=== PATIENT | male | born 1960 | race Caucasian/White ===

== ENCOUNTER 2016-07-25 09:35 | Outpatient (CLI) | payer BC ==
--- NOTE | 2016-07-25 12:22 | RAD ---
TWO VIEW CHEST INDICATIONS: Oropharyngeal malignancy. Preoperative evaluation. COMPARISON: 10/04/2014 FINDINGS: There is a left chest port. No consolidation or effusion. The cardiac silhouette is stable. IMPRESSION: No focal consolidation. POS: [facility]
== END 2016-07-25 09:36 | disposition home or self-care (01) ==
LOC: MADRAD 09:35
PROVIDERS: ATTEND Otolaryngology Otolaryngic Allergy
DX: C10.9 Malignant neoplasm of oropharynx, unspecified (principal)
CPT/HCPCS: 71020